=== PATIENT | male | born 1965 | race Caucasian/White ===

== ENCOUNTER 2016-10-25 08:12 | Inpatient (IN) | payer OTHER ==
[2016-10-20 13:36] VITALS: BMI 24.0
[~2016-10-25] VITALS: Ht 188 cm; Wt 85.0 kg
[2016-10-25] VITALS (8 sets, daily range): BP systolic 112–148; BP diastolic 60–85; PULSE 54–98; TEMP 36.3–37.1; O2SAT 93–98; Ht 188 cm; Wt 85.0 kg
[~2016-10-25 08:12] MED LIST: ASPI81TA28 PO; CEFAZOLIN 2000 MG/60 ML D5W IV SCH; HYDR25TA4 PO; LACTATED RINGER'S 1000ML 1,000 ML IV SCH; LISI-729 PO; PATIENT'S HEIGHT AND/OR WEIGHT NEEDED SCH; PRLSR20 PO
[2016-10-25] MEDS ORDERED: FENTANYL CITRATE INJ 50 MCG/1 ML 2 ML VIAL ONE (08:17)
[2016-10-25] MEDS ORDERED: MIDAZOLAM HCL 1 MG/ML 2ML VIAL ONE (08:17)
[2016-10-25] MEDS ORDERED: ONDANSETRON INJ 2 MG/ML 2 ML VIAL IV PRN (09:30)
[2016-10-25] MEDS ORDERED: ATROPINE SULFATE 0.1 MG/ML 5ML SYR IV PRN (09:30)
[2016-10-25] MEDS ORDERED: LABETALOL HCL IV 5 MG/ML 20ML IV PRN (09:30)
--- NOTE | 2016-10-25 09:42 | History & Physical Bridge Note ---
H&P Re-Evaluation Bridge Note: I have examined the patient, reviewed the History & Physical and in the interval since the performance of the History & Physical I have noted the following changes of clinical significance: No changes noted
--- NOTE | 2016-10-25 09:51 | History and Physical ---
History & Physical Date Oct 25, 2016. Chief Complaint R renal cell carcinoma History of Present Illness The patient is a 51 year old male with complaints of Past Medical/Surgical History Pt with incidentally discovered R renal mass - subsequently biopsied - diagnosing renal cell carcinoma - now here for definitive treatment via nephrectomy Additional History Hepatic Disease: Yes (Hep C) Endocrine Disorder: No Kidney Disease: Yes (kidney stones) Hypertension: No Heart Disease: No Bleeding Tendencies: No Infectious Diseases: No Allergies Coded Allergies: No Known Allergies (Unverified , 10/25/16) Home Medications Scheduled Aspirin (Aspirin Ec), 81 MG PO DAILY Hydrochlorothiazide (Hctz), 25 MG PO DAILY Lisinopril (Zestril), 5 MG PO DAILY Omeprazole (Prilosec), 20 MG PO DAILY Physical Examination Skin: warm/dry Eyes: normal inspection, EOMI, sclerae normal ENT: normal ENT inspection, pharynx normal Head: normocephalic, atraumatic Neck: supple, no adenopathy, trachea midline Respiratory/Chest: lungs clear, normal breath sounds, no respiratory distress Cardiovascular: regular rate, rhythm, no edema, no murmur Abdomen / GI: normal bowel sounds, non tender Back: normal inspection Extremities: normal inspection, normal range of motion Neurologic/Psych: no motor/sensory deficits, alert, normal reflexes, oriented x 3 Diagnosis renal cell carcinoma Plan of Treatment R radical nephrectomy. Hand assisted lap.
[2016-10-25] MEDS ORDERED: LARYING-O-JET KIT (LTA) EXT ONE ×2 (10:44)
[2016-10-25] MEDS ORDERED: GLYCOPYRROLATE INJ 0.2 MG/ML VIAL ONE ×2 (10:44→10:55)
[2016-10-25] MEDS ORDERED: PROPOFOL IV EMULSION 10 MG/ML 20 ML VIAL IV ONE (10:44)
[2016-10-25] MEDS ORDERED: DEXAMETHASONE SOD INJ 4 MG/ML VIAL ONE (10:44)
[2016-10-25] MEDS ORDERED: ONDANSETRON INJ 2 MG/ML 2 ML VIAL ONE (10:44)
[2016-10-25] MEDS ORDERED: LIDOCAINE HCL 2% 2 ML VIAL (20MG/ML) ONE (10:44)
[2016-10-25] MEDS ORDERED: ROCURONIUM BROMIDE 10 MG/ML 5 ML VIAL ONE (10:44)
[2016-10-25] MEDS ORDERED: NEOSTIGMINE METHYLSULFATE 5 MG/5 ML SYR ONE (10:44)
[2016-10-25] MEDS ORDERED: PHENYLEPHRINE 100MCG/ML 5ML SYR ONE (10:44)
[2016-10-25] MEDS ORDERED: EpHEDrine SULFATE 50MG/5ML SYR ONE (10:44)
[2016-10-25] MEDS ORDERED: HYDROmorphone INJ 2 MG/ML SYR/VIAL ONE (10:45)
[2016-10-25] MEDS ORDERED: BUPIVACAINE 0.5 % 5 MG/1 ML MPF 30ML VIAL INJ ONE (11:31)
[2016-10-25] MEDS ORDERED: TISSEEL FIBRIN SEALANT 10ML TOP ONE (11:32)
[2016-10-25] MEDS ORDERED: ACETAMINOPHEN/CODEINE 300/30MG TAB PO PRN (11:45)
--- NOTE | 2016-10-25 11:49 | [facility] Post Operative Brief Note ---
Immediate Operative Summary Operative Date Oct 25, 2016. Pre-Operative Diagnosis Right Renal Mass Post-Operative Diagnosis Right Renal Mass Procedure(s) Performed Right Hand-Assisted Laparoscopic Nephrectomy, Radical Surgeon Dr. Jean Ferguson Logistics Intern Surgeon(s) Patti NGUYEN Estimated Blood Loss 50 ML Findings R renal cell carcinoma - biopsy proven. - details of the procedure as per dictation. Specimens A. Right Kidney Drains Bajwa Anesthesia Gen Complication(s) None Disposition Recovery Room / PACU (stable)
[2016-10-25] MEDS: HYDROmorphone INJ 2 MG/ML SYR/VIAL IV PRN ×8 (12:02→12:37)
[2016-10-25 12:06] LABS: HEMATOCRIT 41.8 % (42-52); MEAN CELL VOLUME 92.1 fL (80-100); MEAN CORPUSCULAR HEMOGLOBIN 32.4 pg (25-34); MEAN PLATELET VOLUME 10.5 fL (7.4-10.4); PLATELET COUNT 165 K/uL (130-400); RED BLOOD COUNT 4.54 M/uL (4.7-6.1)
[2016-10-25 12:10] LABS: MEAN CORPUSCULAR HGB CONC 35.2 g/dl (32-36)
[2016-10-25 12:26] LABS: BUN/CREATININE RATIO 9.4 (10-20); CALCIUM 8.8 mg/dl (8.5-10.1); CREATININE 1.2 mg/dl (0.60-1.40); POTASSIUM 4.7 mmol/L (3.5-5.1)
--- NOTE | 2016-10-25 13:03 | OPERATIVE REPORT ---
DATE OF OPERATION: 10/25/2016 PREOPERATIVE DIAGNOSIS: Right renal cell carcinoma. POSTOPERATIVE DIAGNOSIS: Right renal cell carcinoma. PROCEDURE PERFORMED: Right radical nephrectomy. ANESTHESIA: General. ESTIMATED BLOOD LOSS: 50 mL. URINE OUTPUT: Not recorded. SPECIMENS: Right kidney for routine pathology. PRIMARY SURGEON: Dr. Jean Ferguson. CODING COMPLIANCE MANAGER: Ms. Patti Barrera. DRAIN: Bajwa catheter. DESCRIPTION OF THE PROCEDURE: Juliano Cardenas was identified in the preoperative holding area. Appropriate informed consents were reviewed and completed and the patient was transported to the operating suite. Upon arrival, he received appropriate preoperative antibiotics in the form of Ancef. Adequate general anesthesia was achieved and the patient was placed in left side down, right side up lateral decubitus position and padded and braced in standard fashion. Following sterile prep and drape, I made a Harper style incision in the right lower quadrant beginning at the lateral border of the rectus and extending for approximately 7 cm laterally. I dissected layer by layer opening first the external oblique, followed by the internal oblique, and finally the transversus abdominis before opening the peritoneum sharply. Inspection internally inside of the peritoneum revealed no adhesive disease. Colon was easily visualized. The white line of Toldt was incised beginning at the level of the incision, and this was carried up onto the kidney while medializing the colon. I additionally carried this dissection somewhat caudally down towards the iliac vessels. After medializing the colon, I placed the hand port and insufflated the abdomen. Full laparoscopic inspection was carried out without any evidence of adhesive disease. Anterior abdominal wall was free of adhesions and 2 additional ports were placed onto my hand. The first port was placed approximately 2 fingerbreadths below the costal margin at the rectus border. The segment was placed approximately 5 cm below that. I began then began the laparoscopic portion of the case continuing my incision of the white line of Toldt and medialization of the colon. After entirely medializing it I was able to visualize the duodenum and this was somewhat kocherized although it was already relatively medial and the IVC was visible lateral to it. Beginning at the lower pole of the kidney, I visualized where the gonadal entered the IVC, and I dissected just lateral to this elevating the cone of Gerota's, as well as the ureter. With my finger around the psoas muscle behind the kidney, I was able to stretch the hilum, and I dissected around the vein and artery en block. After skeletonizing these completely, I fired a staple load across the hilum controlling the 2 vessels together. I fired 2 additional staple loads across the superior and medial border of the kidney to completely free it from the adrenal gland and its superior attachments. I then used Harmonic scalpel to incise the remaining portion of the lateral and superior attachments of the kidney. The kidney was then entirely freed with the exception of the cone of Gerota's. I skeletonized cone of Gerota's using Harmonic scalpel and I divided the ureter with the harmonic between a series of clips placed distally and proximally. The specimen was then extracted through the hand port. There was excellent hemostasis. I did place Tisseel across the resection bed. I then withdrew all the ports and desufflated the abdomen. I closed the 2 laparoscopic ports with 0 Vicryl in [id number] fashion to reapproximate the fascia. I closed the hand port incision in 4 layers, the first being the peritoneal closure of 0 Vicryl followed by closure of the transversus abdominis with 0 Vicryl, followed by #1 PDS to close the internal oblique fascia, followed by a 0 Vicryl to close the external oblique fascia. All wounds were infiltrated with 0.5% Marcaine, and the skin was closed with 4-0 Monocryl and Dermabond. At that time the case was concluded. The patient was extubated and taken to the PACU in stable condition. There were no complications. I attest to the content of the Intraoperative Record and any orders documented therein. Any exceptio ns are noted below.
--- NOTE | 2016-10-25 13:04 | Anesthesiology Progress Note ---
Anesthesia Post Op Note Date & Time Oct 25, 2016 at 13:03 Vital Signs Vital Signs Past 12 Hours Date Time Temp Pulse Resp B/P Pulse Ox O2 Delivery O2 Flow Rate FiO2 10/25/16 12:55 76 14 10/25/16 12:55 77 14 97 10/25/16 12:54 162/98 10/25/16 12:51 156/90 10/25/16 12:50 56 17 97 10/25/16 12:50 56 17 10/25/16 12:49 139/103 10/25/16 12:45 78 16 10/25/16 12:45 86 16 90 10/25/16 12:44 148/78 10/25/16 12:40 74 16 97 10/25/16 12:40 73 16 10/25/16 12:39 160/92 10/25/16 12:35 71 16 10/25/16 12:35 70 16 98 10/25/16 12:34 159/93 10/25/16 12:34 36.4 71 18 159/93 99 Nasal Cannula 2 10/25/16 12:30 75 19 10/25/16 12:30 75 19 98 10/25/16 12:29 132/89 10/25/16 12:25 76 14 98 10/25/16 12:25 75 14 10/25/16 12:24 133/99 10/25/16 12:20 73 16 99 10/25/16 12:20 73 16 10/25/16 12:19 72 15 134/89 98 10/25/16 12:19 71 15 10/25/16 12:14 71 15 136/79 98 10/25/16 12:14 70 15 10/25/16 12:09 66 18 10/25/16 12:09 66 18 131/89 98 10/25/16 12:04 68 12 149/85 99 10/25/16 12:04 69 12 10/25/16 11:59 78 12 149/86 98 10/25/16 11:59 77 12 10/25/16 11:54 36.1 94 16 154/89 96 Mask 10 10/25/16 11:54 85 12 10/25/16 11:54 85 12 161/87 97 10/25/16 08:34 36.3 54 20 115/72 98 Room Air Notes Mental Status: alert / awake / arousable, participated in evaluation Pt Amnestic to Procedure: Yes Nausea / Vomiting: adequately controlled Pain: adequately controlled Airway Patency, RR, SpO2: stable & adequate BP & HR: stable & adequate Hydration State: stable & adequate Anesthetic Complications: no major complications apparent
[2016-10-25] MEDS: LACTATED RINGER'S 1000ML 1,000 ML IV SCH ×2 (14:04→18:55)
[2016-10-25] MEDS: ACETAMINOPHEN 500 MG TAB PO SCH ×2 (18:00→23:48)
[2016-10-25] MEDS: CEFAZOLIN IV 1,000 MG in DEXTROSE 5% 50ML 50 ML IV SCH (18:55)
[2016-10-25] MEDS: DOCUSATE SODIUM 100 MG CAP PO SCH (20:42)
[2016-10-25] MEDS: HYDROmorphone INJ 1 MG/ML SYR IV PRN (20:42)
[2016-10-25] MEDS: HEPARIN SOD 5000 UNIT/0.5 ML CARP SQ SCH (22:15)
[2016-10-26] MEDS: HYDROmorphone INJ 1 MG/ML SYR IV PRN ×3 (00:57→10:01)
[2016-10-26] MEDS: ONDANSETRON INJ 2 MG/ML 2 ML VIAL IV PRN ×2 (00:57→23:22)
[2016-10-26] MEDS: CEFAZOLIN IV 1,000 MG in DEXTROSE 5% 50ML 50 ML IV SCH ×2 (02:13→09:54)
[2016-10-26] MEDS: LACTATED RINGER'S 1000ML 1,000 ML IV SCH (02:14)
[2016-10-26 04:00] VITALS: BP 113/66; PULSE 56; TEMP 36.6; O2SAT 98
[2016-10-26] MEDS: ACETAMINOPHEN 500 MG TAB PO SCH ×4 (05:45→23:22)
[2016-10-26 07:06] VITALS: BP 130/78; PULSE 52; TEMP 37; O2SAT 98
[2016-10-26 08:09] LABS: BASO % 0.1 %; BASO ABS # 0.01 K/uL (0-0.2); COMPLETE YES; EOS % 0.6 %; HEMATOCRIT 38.9 % (42-52); IG% 0.2 %; LYMPH % 17.2 %; LYMPH ABS # 1.63 K/uL (1.2-3.4); MEAN CELL VOLUME 91.1 fL (80-100); MEAN CORPUSCULAR HEMOGLOBIN 31.9 pg (25-34); MEAN PLATELET VOLUME 10.6 fL (7.4-10.4); MONO % 11.6 %; NEUT % 70.3 %; PLATELET COUNT 162 K/uL (130-400); RED BLOOD COUNT 4.27 M/uL (4.7-6.1); WHITE BLOOD COUNT 9.47 K/uL (4.8-10.8)
--- NOTE | 2016-10-26 08:14 | Progress Note ---
Subjective Date of Service: Oct 26, 2016. Subjective Pt evaluation today including: conversation w/ patient, chart review Voiding: tracy catheter in place (patent, draining clear, yellow urine ) 51 yo male s/p right HALN. Pt reports some abdominal incisional pain this morning. Denies n/v. Denies flatus or BM. He has not yet been OOB to chair or ambulated to the hallway. Labs pending. Review of Systems Constitutional: No chills, No fever Respiratory: No shortness of breath Cardiac: No chest pain Abdomen: No nausea, No pain, No vomiting Male : No hematuria Heme: No abnormal bleeding/bruising Objective Vital Signs Date Time Temp Pulse Resp B/P Pulse Ox O2 Delivery O2 Flow Rate FiO2 10/26/16 07:06 37.0 52 16 130/78 98 Room Air 10/26/16 07:05 Room Air 10/26/16 04:00 36.6 56 16 113/66 98 Room Air 10/25/16 23:53 Room Air 10/25/16 22:50 37.1 77 18 112/60 94 Room Air 10/25/16 20:00 37.1 70 18 148/80 98 Nasal Cannula 2.0 10/25/16 16:05 36.8 98 18 140/82 95 Nasal Cannula 2.0 10/25/16 15:35 Nasal Cannula 2.0 10/25/16 15:05 36.6 81 18 129/75 97 Nasal Cannula 2.0 10/25/16 14:05 36.9 72 16 139/85 98 Nasal Cannula 2.0 10/25/16 13:35 36.4 66 16 135/79 93 Nasal Cannula 2.0 10/25/16 13:05 36.6 63 12 144/76 98 Nasal Cannula 2.0 10/25/16 13:05 98 Nasal Cannula 2.0 10/25/16 13:05 Nasal Cannula 2.0 10/25/16 12:55 76 14 10/25/16 12:55 77 14 97 10/25/16 12:54 162/98 10/25/16 12:51 156/90 10/25/16 12:50 56 17 97 10/25/16 12:50 56 17 10/25/16 12:49 139/103 10/25/16 12:45 78 16 10/25/16 12:45 86 16 90 10/25/16 12:44 148/78 10/25/16 12:40 74 16 97 10/25/16 12:40 73 16 10/25/16 12:39 160/92 10/25/16 12:35 71 16 10/25/16 12:35 70 16 98 10/25/16 12:34 159/93 10/25/16 12:34 36.4 71 18 159/93 99 Nasal Cannula 2 10/25/16 12:30 75 19 10/25/16 12:30 75 19 98 10/25/16 12:29 132/89 10/25/16 12:25 76 14 98 10/25/16 12:25 75 14 10/25/16 12:24 133/99 10/25/16 12:20 73 16 99 10/25/16 12:20 73 16 10/25/16 12:19 72 15 134/89 98 10/25/16 12:19 71 15 10/25/16 12:14 71 15 136/79 98 10/25/16 12:14 70 15 10/25/16 12:09 66 18 10/25/16 12:09 66 18 131/89 98 10/25/16 12:04 68 12 149/85 99 10/25/16 12:04 69 12 10/25/16 11:59 78 12 149/86 98 10/25/16 11:59 77 12 10/25/16 11:54 36.1 94 16 154/89 96 Mask 10 10/25/16 11:54 85 12 10/25/16 11:54 85 12 161/87 97 10/25/16 08:34 36.3 54 20 115/72 98 Room Air Physical Exam General Appearance: no apparent distress Eyes: normal inspection ENT: hearing grossly normal Neck: no JVD Respiratory/Chest: no respiratory distress, no accessory muscle use Cardiovascular: no JVD Abdomen: + pertinent finding (abdominal incisions c/d/i) Extremities: normal inspection Neurologic/Psychiatric: alert, normal mood/affect, oriented x 3 Skin: normal color Laboratory Results Last 24 Hours Test 10/25/16 11:57 10/26/16 07:51 White Blood Count 7.30 K/uL 9.47 K/uL Red Blood Count 4.54 M/uL 4.27 M/uL Hemoglobin 14.7 g/dL 13.6 g/dL Hematocrit 41.8 % 38.9 % Mean Corpuscular Volume 92.1 fL 91.1 fL Mean Corpuscular Hemoglobin 32.4 pg 31.9 pg Mean Corpuscular Hemoglobin Concent 35.2 g/dl 35.0 g/dl RDW Standard Deviation 48.5 fL 46.6 fL RDW Coefficient of Variation 14.3 % 14.1 % Platelet Count 165 K/uL 162 K/uL Mean Platelet Volume 10.5 fL 10.6 fL Sodium Level 142 mmol/L Potassium Level 4.7 mmol/L Chloride Level 106 mmol/L Carbon Dioxide Level 28 mmol/L Anion Gap 8.0 mmol/L Blood Urea Nitrogen 11 mg/dl Creatinine 1.20 mg/dl Est Creatinine Clear Calc Drug Dose 86.6 ml/min Estimated GFR () 81.8 Estimated GFR (Non- 70.6 BUN/Creatinine Ratio 9.4 Random Glucose 101 mg/dl Calcium Level 8.8 mg/dl Neutrophils (%) (Auto) 70.3 % Lymphocytes (%) (Auto) 17.2 % Monocytes (%) (Auto) 11.6 % Eosinophils (%) (Auto) 0.6 % Basophils (%) (Auto) 0.1 % Neutrophils # (Auto) 6.65 K/uL Lymphocytes # (Auto) 1.63 K/uL Monocytes # (Auto) 1.10 K/uL Eosinophils # (Auto) 0.06 K/uL Basophils # (Auto) 0.01 K/uL Immature Granulocyte % (Auto) 0.2 % Immature Granulocyte # (Auto) 0.02 K/uL Assessment and Plan POD #1 s/p right HALN AFVSS. Pt doing well post-op. Trial of void this AM. Advance to a mechanical soft diet for breakfast. Hep lock IVF after breakfast if tolerating PO. Encourage ambulation to hallway. Possible d/c home later today if tolerating PO, ambulating without difficulty, labs stable, and pain controlled. The pt was seen and assessed with Dr. Ferguson this morning. Discharge planning: other ([facility])
[2016-10-26] MEDS ORDERED: CLC100 PO (08:17)
[2016-10-26] MEDS ORDERED: ACET-749 PO (08:17)
--- NOTE | 2016-10-26 08:22 | Discharge Instructions ---
Discharge Instructions Admission Reason for Admission: Renal Cell Carcinoma Discharge Discharge Diagnosis / Problem: Renal cell carcinoma; right renal mass Discharge Goals Goal(s): Decrease discomfort, Improve function, Increase independence, Improve disease control, Therapeutic intervention Activity Recommendations Activity Limitations: per Instructions/Follow-up section Shower/Bathe: tomorrow 1. Do not lift >15lbs x 6 weeks. 2. No heavy exercise x 6 weeks. You may engage in light activity such as walking and stairs as tolerated. 3. Do not drive x [address] while taking narcotics. 4. Follow-up as scheduled. Please call our office at [phone] if you need to reschedule for any reason. 5. Pt should remain in the [facility] for 3 days. . . Current Hospital Diet Hospital Diet(s): Regular Diet Discharge Diet Recommended Diet: Regular Diet Procedures Procedures Performed: Right Hand-Assisted Laparoscopic Nephrectomy, Radical Pending Studies Studies pending at discharge: no Medical Emergencies . Who to Call and When: Medical Emergencies: If at any time you feel your situation is an emergency, please call 911 immediately. . Non-Emergent Contact Non-Emergency issues call your: Urologist Call Non-Emergent contact if: temperature is above 101.5, your pain is not controlled, your pain is worsening, your pain is unusual for you, your pain is concerning you, you have any medication questions . . "Provider Documentation" section prepared by Patti Barrera. VTE Core Measure Inpt VTE Proph given/why not?: Unfractionated heparin SQ, SCD's [place] Drug Monitoring Program Search Results: patient reviewed within database, no issues identified
--- NOTE | 2016-10-26 08:42 | Anesthesiology Progress Note ---
Anesthesia Post Op Note Date & Time Oct 26, 2016 at 08:41 Vital Signs Vital Signs Past 12 Hours Date Time Temp Pulse Resp B/P Pulse Ox O2 Delivery O2 Flow Rate FiO2 10/26/16 07:06 37.0 52 16 130/78 98 Room Air 10/26/16 07:05 Room Air 10/26/16 04:00 36.6 56 16 113/66 98 Room Air 10/25/16 23:53 Room Air 10/25/16 22:50 37.1 77 18 112/60 94 Room Air Notes Mental Status: alert / awake / arousable, participated in evaluation Pt Amnestic to Procedure: Yes Nausea / Vomiting: adequately controlled Pain: adequately controlled Airway Patency, RR, SpO2: stable & adequate BP & HR: stable & adequate Hydration State: stable & adequate Anesthetic Complications: no major complications apparent
[2016-10-26 08:45] LABS: BUN/CREATININE RATIO 9.5 (10-20); CALCIUM 8.9 mg/dl (8.5-10.1); CREATININE 1.6 mg/dl (0.60-1.40); POTASSIUM 3.9 mmol/L (3.5-5.1)
[2016-10-26] MEDS: LISINOPRIL 5 MG TAB PO SCH (09:32)
[2016-10-26] MEDS: DOCUSATE SODIUM 100 MG CAP PO SCH ×2 (09:32→21:03)
[2016-10-26] MEDS: PANTOprazole SOD 40 MG TAB PO SCH (09:32)
[2016-10-26] MEDS: HYDROCHLOROTHIAZIDE 25 MG TAB PO SCH (09:32)
[2016-10-26] MEDS ORDERED: NURSING VERBAL MED ORDER ONE (09:45)
[2016-10-26] MEDS: HEPARIN SOD 5000 UNIT/0.5 ML CARP SQ SCH ×2 (09:57→21:06)
[2016-10-26 11:31] VITALS: BP 148/81; PULSE 56; TEMP 36.6; O2SAT 95
[2016-10-26] MEDS: OXYCODONE/ACETAMINOPHEN 7.5-325 TAB PO PRN ×3 (12:52→23:22)
[2016-10-26 15:20] VITALS: BP 141/64; PULSE 57; TEMP 36.6; O2SAT 96
[2016-10-26 16:00] VITALS: O2SAT 96
[2016-10-26 23:34] VITALS: BP 147/82; PULSE 51; TEMP 36.8; O2SAT 97
[2016-10-27] MEDS: ACETAMINOPHEN 500 MG TAB PO SCH ×2 (05:30→12:00)
[2016-10-27 06:01] LABS: BASO % 0.5 %; BASO ABS # 0.04 K/uL (0-0.2); COMPLETE YES; EOS % 3.6 %; HEMATOCRIT 41.3 % (42-52); LYMPH % 31.7 %; LYMPH ABS # 2.45 K/uL (1.2-3.4); MEAN CELL VOLUME 92.2 fL (80-100); MEAN CORPUSCULAR HEMOGLOBIN 32.6 pg (25-34); MEAN CORPUSCULAR HGB CONC 35.4 g/dl (32-36); MEAN PLATELET VOLUME 11.4 fL (7.4-10.4); MONO % 13.1 %; NEUT % 51.1 %; PLATELET COUNT 176 K/uL (130-400); RED BLOOD COUNT 4.48 M/uL (4.7-6.1); WHITE BLOOD COUNT 7.73 K/uL (4.8-10.8)
[2016-10-27 06:33] LABS: BUN/CREATININE RATIO 9.6 (10-20); CALCIUM 9.1 mg/dl (8.5-10.1); CREATININE 1.8 mg/dl (0.60-1.40); POTASSIUM 4.1 mmol/L (3.5-5.1)
[2016-10-27] MEDS: OXYCODONE/ACETAMINOPHEN 7.5-325 TAB PO PRN ×2 (07:29→14:25)
--- NOTE | 2016-10-27 07:56 | Progress Note ---
Subjective Date of Service: Oct 27, 2016. Subjective Pt evaluation today including: conversation w/ patient, chart review, lab review Voiding: no voiding problems 51 yo male s/p right HALN. Pt continues to have some incisional pain this AM. Denies n/v this morning, but reports some nausea last evening. He reports he feels like he could have a BM this morning. Voiding without difficulty. H&H stable. Cr elevated to 1.8 this AM. I&Os acceptable. Per RN, pt eating 100% of diet and ambulating without difficulty. Review of Systems Constitutional: No chills, No fever Respiratory: No shortness of breath Cardiac: No chest pain Abdomen: + pain, + see HPI, No nausea, No vomiting Male : No hematuria Heme: No abnormal bleeding/bruising Objective Vital Signs Date Time Temp Pulse Resp B/P Pulse Ox O2 Delivery O2 Flow Rate FiO2 10/26/16 23:34 36.8 51 16 147/82 97 Room Air 10/26/16 23:28 Room Air 10/26/16 16:00 96 Room Air 10/26/16 15:20 36.6 57 18 141/64 96 Room Air 10/26/16 11:31 36.6 56 16 148/81 95 Room Air Physical Exam General Appearance: no apparent distress Eyes: normal inspection ENT: hearing grossly normal Neck: no JVD Respiratory/Chest: no respiratory distress, no accessory muscle use Cardiovascular: no JVD Abdomen: + distended, + pertinent finding (abdominal incisions c/d/i) Extremities: normal inspection Neurologic/Psychiatric: alert, normal mood/affect, oriented x 3 Skin: normal color Laboratory Results Last 24 Hours Test 10/26/16 07:51 10/27/16 05:13 White Blood Count 9.47 K/uL 7.73 K/uL Red Blood Count 4.27 M/uL 4.48 M/uL Hemoglobin 13.6 g/dL 14.6 g/dL Hematocrit 38.9 % 41.3 % Mean Corpuscular Volume 91.1 fL 92.2 fL Mean Corpuscular Hemoglobin 31.9 pg 32.6 pg Mean Corpuscular Hemoglobin Concent 35.0 g/dl 35.4 g/dl Platelet Count 162 K/uL 176 K/uL Mean Platelet Volume 10.6 fL 11.4 fL Neutrophils (%) (Auto) 70.3 % 51.1 % Lymphocytes (%) (Auto) 17.2 % 31.7 % Monocytes (%) (Auto) 11.6 % 13.1 % Eosinophils (%) (Auto) 0.6 % 3.6 % Basophils (%) (Auto) 0.1 % 0.5 % Neutrophils # (Auto) 6.65 K/uL 3.95 K/uL Lymphocytes # (Auto) 1.63 K/uL 2.45 K/uL Monocytes # (Auto) 1.10 K/uL 1.01 K/uL Eosinophils # (Auto) 0.06 K/uL 0.28 K/uL Basophils # (Auto) 0.01 K/uL 0.04 K/uL RDW Standard Deviation 46.6 fL 48.0 fL RDW Coefficient of Variation 14.1 % 14.2 % Immature Granulocyte % (Auto) 0.2 % 0.0 % Immature Granulocyte # (Auto) 0.02 K/uL 0.00 K/uL Sodium Level 141 mmol/L 139 mmol/L Potassium Level 3.9 mmol/L 4.1 mmol/L Chloride Level 105 mmol/L 101 mmol/L Carbon Dioxide Level 28 mmol/L 31 mmol/L Anion Gap 8.0 mmol/L 7.0 mmol/L Blood Urea Nitrogen 15 mg/dl 17 mg/dl Creatinine 1.60 mg/dl 1.80 mg/dl Est Creatinine Clear Calc Drug Dose 65.0 ml/min 57.7 ml/min Estimated GFR () 57.8 50.1 Estimated GFR (Non- 49.8 43.2 BUN/Creatinine Ratio 9.5 9.6 Random Glucose 81 mg/dl 75 mg/dl Calcium Level 8.9 mg/dl 9.1 mg/dl Assessment and Plan POD #2 s/p right HALN AFVSS. Pt doing well post-op. Encourage ambulation to hallway. Encourage use of IS. Likely d/c back to [facility] later today if tolerating PO, ambulating without difficulty, and pain controlled. Discharge planning: other ([facility])
[2016-10-27 08:16] VITALS: BP 120/81; PULSE 56; TEMP 36.7; O2SAT 97
[2016-10-27] MEDS: HYDROCHLOROTHIAZIDE 25 MG TAB PO SCH (08:42)
[2016-10-27] MEDS: PANTOprazole SOD 40 MG TAB PO SCH (08:42)
[2016-10-27] MEDS: LISINOPRIL 5 MG TAB PO SCH (08:42)
[2016-10-27] MEDS: DOCUSATE SODIUM 100 MG CAP PO SCH (08:42)
[2016-10-27] MEDS: HEPARIN SOD 5000 UNIT/0.5 ML CARP SQ SCH (10:44)
[2016-10-27 12:40] VITALS: BP 150/78; PULSE 64; TEMP 36.4; O2SAT 96
--- NOTE | 2016-10-27 13:26 | DIAGNOSTIC IMAGING REPORT ---
CHEST ONE VIEW PORTABLE CLINICAL HISTORY: SOB dyspnea COMPARISON STUDY: No previous studies for comparison. FINDINGS: High probability of subdiaphragmatic free air. Lungs and cells is specifically clear. Diaphragms smooth. IMPRESSION: 1. Distended bowel versus subdiaphragmatic free air. 2. No acute process of the chest. Correlation must be made with potential postoperative history, with either routine films of the abdomen or CT of the abdomen recommended if there has been no surgical interventional procedure Electronically signed by: Campbell Stokes M.D. 10/27/2016 1:25 PM
--- NOTE | 2016-10-27 14:55 | Discharge Instructions ---
Discharge Instructions Admission Reason for Admission: Renal Cell Carcinoma Discharge Discharge Diagnosis / Problem: renal mass Discharge Goals Goal(s): Specific goals Activity Recommendations Activity Limitations: as noted below . Per urology recommendations Instructions / Follow-Up Instructions / Follow-Up Please notify the RN/Doctor is the chest pain returns tonight. They may repeat an EKG or repeat blood work Given the cardiac history and your family, you should undergo a non-urgent outpatient stress test within the next year Stop smoking Return to the emergency department if you have any of the following symptoms: -Severe Chest pain -Shortness of breath Current Hospital Diet Patient's current hospital diet: Regular Diet Discharge Diet Recommended Diet: AHA Diet (Heart Healthy) Procedures Procedures Performed: Right Hand-Assisted Laparoscopic Nephrectomy, Radical Pending Studies Studies pending at discharge: no Medical Emergencies . Who to Call and When: Medical Emergencies: If at any time you feel your situation is an emergency, please call 911 immediately. . Non-Emergent Contact Non-Emergency issues call your: Primary Care Provider, Urologist . . "Provider Documentation" section prepared by Adrianna Wu. VTE Core Measure Inpt VTE Proph given/why not?: Unfractionated heparin SQ, SCD's
--- NOTE | 2016-10-27 15:04 | Medical Consult ---
Consultation Date of Consultation: Oct 27, 2016. Attending Physician: Jean Ferguson M.D. Reason for Consultation: Chest pain History of Present Illness This patient is a pleasant 51-year-old male that underwent a laparoscopic right nephrectomy for renal mass on 10/25. The postoperative course was uneventful. The patient was ready for discharge today when he began complaining of a burning sensation in his stomach radiating up into his chest. It happened immediately after receiving a heparin injection. He does describe a chest tightness and some shortness of breath that lasted for approximately 20 minutes. He is currently symptom free. He denies any nausea, dizziness, heart palpitations or sweating. He denies any personal history of coronary artery disease. No history of blood clots. Past Medical/Surgical History History of "small stroke" Hypertension GERD Family History Father-had an ND in his 40s Mother had coronary artery disease in her 70s Social History Smoking Status: Current Every Day Smoker (smokes 2-3 cigarettes per day) Drug Use: none Housing Status: other (incarcerated at [facility]) Allergies Coded Allergies: No Known Allergies (Unverified , 10/25/16) Home Medications Aspirin 81 mg daily HCTZ 25 mg daily Lisinopril 5 mg daily Prilosec 20 mg daily Current Inpatient Medications Current Inpatient Medications Medications (Trade) Dose Ordered Sig/Nirmala Route Start Time Stop Time Status Last Admin Dose Admin Acetaminophen (Tylenol Tab) 500 mg Q6H PO 10/25/16 18:00 11/24/16 17:59 10/27/16 05:30 500 MG Docusate Sodium (coLACE CAP) 100 mg BID PO 10/25/16 21:00 11/24/16 20:59 10/27/16 08:42 100 MG Heparin Sodium (Porcine) (Heparin Sq 5000 Unit/0.5ml) 5,000 unit Q12H SQ 10/25/16 22:00 11/24/16 21:59 10/27/16 10:44 5,000 UNIT Hydromorphone HCl (Dilaudid Inj) 1 mg Q2H PRN IV 10/25/16 11:45 11/08/16 11:44 10/26/16 10:01 1 MG Ondansetron HCl (Zofran Inj) 4 mg Q6H PRN IV 10/25/16 11:45 11/24/16 11:44 10/26/16 23:22 4 MG Hydrochlorothiazide (Hydrochlorothiazide Tab) 25 mg DAILY PO 10/26/16 09:00 11/25/16 08:59 10/27/16 08:42 25 MG Lisinopril (Zestril Tab) 5 mg DAILY PO 10/26/16 09:00 11/25/16 08:59 10/27/16 08:42 5 MG Pantoprazole Sodium (Protonix Tab) 40 mg QAM PO 10/26/16 09:00 11/25/16 08:59 10/27/16 08:42 40 MG Oxycodone/ Acetaminophen (Percocet 7.5-325MG Tab) 1-2 tablets PO q4-6... Q4H PRN PO 10/26/16 08:15 11/09/16 08:14 10/27/16 14:25 2 TAB Review of Systems 10 system review performed and negative unless noted in HPI or below Physical Exam Date Time Temp Pulse Resp B/P Pulse Ox O2 Delivery O2 Flow Rate FiO2 10/27/16 12:40 36.4 64 18 150/78 96 Room Air 10/27/16 08:16 36.7 56 16 120/81 97 Room Air 10/27/16 07:10 Room Air 10/26/16 23:34 36.8 51 16 147/82 97 Room Air 10/26/16 23:28 Room Air 10/26/16 16:00 96 Room Air 10/26/16 15:20 36.6 57 18 141/64 96 Room Air General Appearance: no apparent distress Head: normocephalic Eyes: EOMI Neck: no JVD Respiratory/Chest: lungs clear Cardiovascular: regular rate, rhythm, + pertinent finding (chest pain is not reproducible) Abdomen/GI: normal bowel sounds, soft, + pertinent finding (incision intact) Extremities/Musculoskelatal: no calf tenderness, no pedal edema Neurologic/Psych: no motor/sensory deficits, oriented x 3 Skin: warm/dry Laboratory Results Last 24 Hours Test 10/27/16 05:13 10/27/16 12:58 10/27/16 13:10 White Blood Count 7.73 K/uL Red Blood Count 4.48 M/uL Hemoglobin 14.6 g/dL Hematocrit 41.3 % Mean Corpuscular Volume 92.2 fL Mean Corpuscular Hemoglobin 32.6 pg Mean Corpuscular Hemoglobin Concent 35.4 g/dl Platelet Count 176 K/uL Mean Platelet Volume 11.4 fL Neutrophils (%) (Auto) 51.1 % Lymphocytes (%) (Auto) 31.7 % Monocytes (%) (Auto) 13.1 % Eosinophils (%) (Auto) 3.6 % Basophils (%) (Auto) 0.5 % Neutrophils # (Auto) 3.95 K/uL Lymphocytes # (Auto) 2.45 K/uL Monocytes # (Auto) 1.01 K/uL Eosinophils # (Auto) 0.28 K/uL Basophils # (Auto) 0.04 K/uL RDW Standard Deviation 48.0 fL RDW Coefficient of Variation 14.2 % Immature Granulocyte % (Auto) 0.0 % Immature Granulocyte # (Auto) 0.00 K/uL Sodium Level 139 mmol/L Potassium Level 4.1 mmol/L Chloride Level 101 mmol/L Carbon Dioxide Level 31 mmol/L Anion Gap 7.0 mmol/L Blood Urea Nitrogen 17 mg/dl Creatinine 1.80 mg/dl Est Creatinine Clear Calc Drug Dose 57.7 ml/min Estimated GFR () 50.1 Estimated GFR (Non- 43.2 BUN/Creatinine Ratio 9.6 Random Glucose 75 mg/dl Calcium Level 9.1 mg/dl Creatine Kinase MB Ratio Creatine Kinase MB 1.9 ng/ml Troponin I < 0.015 ng/ml Assessment & Plan 51-year-old male with history of a right renal mass status post lap assisted right nephrectomy postop day #2. Was ready for discharge today when he began complaining of a burning sensation after his heparin injections that radiated into his chest -I have a low suspicion that this is cardiac related. His EKG shows normal sinus rhythm with a rate of 62 bpm and LVH. No ischemic changes were noted. -Troponin drawn at 1310 is negative -His symptoms are likely related to the heparin injection -The patient is stable for discharge; however, the patient should have a non- urgent stress test given his family history -Encourage smoking cessation -If symptoms return, repeat EKG at [facility] and transfer to the emergency department if indicated Mild renal insufficiency Slight elevation in creatinine from 1.6-1.8-related to surgery -Again acceptable for discharge -Repeat BMP in 3-5 days -Follow up with urology as instructed Additional Copies To Patti Barrera CRNP Reviewed: Pt Seen/Exam by Me, RN Notes, HO Notes, Prior Records, RAD History I Agree with PA medical consult with some modifications as below A 51-year-old male with history of a right renal mass status post lap assisted right nephrectomy postop day #2. Was ready for discharge today when he began complaining of a burning sensation after his heparin sq injections that radiated into his chest. Constitutional: denies: chills Respiratory: negative: cough Cardiovascular: denies chest pain (resolved), denies palpitations Genitourinary: negative discharge Musculoskeletal: negative: back pain Skin: negative: change in color Neurological/Psych: negative: anxiety Hematologic/Lymphatic: negative: anemia General Appearance: WD/WN, no apparent distress Eye Exam: bilateral eye normal inspection Ears, Nose, Throat: hearing grossly normal, pharynx normal Neck: non-tender, supple Respiratory: chest non-tender, normal breath sounds Cardiovascular: normal peripheral pulses, no edema Gastrointestinal: normal bowel sounds, other (right lower side wound is healing , no discharge) Neurologic/Psychiatric: alert, oriented x 3 Skin Characteristics: normal color, warm/dry Assessment/Plan A 51-year-old male with history of a right renal mass status post lap assisted right nephrectomy postop day #2. Was ready for discharge today when he began complaining of a burning sensation after his heparin injections that radiated into his chest 1. CP likely atypical chest pain His EKG shows normal sinus rhythm with a rate of 62 bpm and LVH. No ischemic changes were noted. Troponin is negative His symptoms are likely related to the heparin injection he patient is stable for discharge; however, the patient should have a non- urgent stress test given his family history smoking cessation If symptoms return, repeat EKG at [facility] and transfer to the emergency department if indicated Mild renal insufficiency Slight elevation in creatinine from 1.6-1.8-related to surgery acceptable for discharge Repeat BMP in 3-5 days Follow up with urology as instructed case discussed with Shira FRAIRE time spent 45 min
[2016-10-27 15:16] VITALS: BP 150/78; PULSE 64; TEMP 36.4; O2SAT 96
[2016-10-27 15:38] VITALS: BP 132/71; PULSE 57; TEMP 36.6; O2SAT 94
--- NOTE | 2016-11-07 07:26 | Discharge Summary ---
Discharge Summary Admission Date: Oct 25, 2016 at 11:43 Discharge Date: Oct 26, 2016 Discharge Disposition: Home Principal Diagnosis: renal cell carcinoma Procedures: right radical nephrectomy (hand assisted laparoscopic) Medication Reconciliation New Medications: Acetaminophen/Codeine (Tylenol W/Codeine #3) 300 Mg/30 Mg Tab 1-2 TAB PO Q4H PRN for Pain, #20 TAB 0 Refills Docusate Sodium (Docusate Sodium) 100 Mg Cap 100 MG PO BID PRN for Constipation, #60 CAP 0 Refills Continued Medications: Aspirin (Aspirin Ec) 81 Mg Tab 81 MG PO DAILY Hydrochlorothiazide (Hctz) 25 Mg Tab 25 MG PO DAILY, TAB Lisinopril (Zestril) 5 Mg Tab 5 MG PO DAILY, TAB Omeprazole (Prilosec) 20 Mg Capcr 20 MG PO DAILY, CAP Hospital Course Admitted for R LOLITA Nx - details of the procedure as dictated in the operative report. In summary, he tolerated the procedure very well and was transferred to the floor in stable condition. He progressed well overnight. He was fairly stable on POD#1, but requested to stay overnight. He complained of mild CP on the evening of POD#1. He was evaluated and cleared by the hospitalist team. He was subsequently d/c'ed back to the [facility] on POD#2. Total time spent on discharge = This includes examination of the patient, discharge planning, medication reconciliation, and communication with other providers. Discharge Instructions Please see previously written d/c instructions
== END 2016-10-27 15:55 | DRG 658 ==
LOC: ENRESERVTM → ENRESERVDT → C.ACU 08:12 → C.MSN 11:43 → EDBEDREQ 12:22
PROVIDERS: ADMIT Urology; ATTEND Urology
PROC: 0TT00ZZ Resection of Right Kidney, Open Approach (ICD-10-PCS; principal; 2016-10-25 10:00)
DX: C64.1 Malignant neoplasm of right kidney, except renal pelvis (principal); R07.89 Other chest pain; T45.515A Adverse effect of anticoagulants, initial encounter; Y92.230 Patient room in hospital as the place of occurrence of the external cause; N28.9 Disorder of kidney and ureter, unspecified; B19.20 Unspecified viral hepatitis C without hepatic coma; I10 Essential (primary) hypertension; K21.9 Gastro-esophageal reflux disease without esophagitis; F17.210 Nicotine dependence, cigarettes, uncomplicated; Z86.73 Personal history of transient ischemic attack (TIA), and cerebral infarction without residual deficits; Z82.49 Family history of ischemic heart disease and other diseases of the circulatory system; Z79.82 Long term (current) use of aspirin; Z79.899 Other long term (current) drug therapy